=== PATIENT | male | born 1960 | race Caucasian/White ===

== ENCOUNTER 2016-08-02 16:18 | Emergency (ER) | payer OTHER ==
[~2016-08-02] VITALS: Ht 188 cm; Wt 70.3 kg
--- NOTE | 2016-08-02 16:51 | ED AMS/SEIZURE/WEAK/DIZZY ---
History of Present Illness General Chief Complaint: Chest Pain Stated Complaint: CP, DIZZY +N/V Source: patient Exam Limitations: no limitations Vital Signs & Intake/Output Vital Signs & Intake/Output Vital Signs Date Time Temp Pulse Resp B/P Pulse O2 O2 Flow FiO2 Ox Delivery Rate 08/02 1917 76 18 110/61 97 Room Air 08/02 1624 97.0 73 16 114/78 97 Room Air Allergies Coded Allergies: cephalexin (HIVES 08/02/16) Reconcile Medications Aspirin (Ecotrin*) 81 MG TABLET.DR 1 TAB PO DAILY HEART/BLOOD (Reported) Diazepam (Valium) 5 MG TABLET 1 TAB PO TID VERTIGO Hydrocodone/Acetaminophen (Hydrocodon-Acetaminophen 5-325) 5 MG-325 MG TABLET 1 TAB PO PRN PAIN (Reported) Meclizine HCl 25 MG TABLET 1 TAB PO TIDPRN VERTIGO Naproxen 500 MG TABLET 1 TAB PO BID PAIN/INFLAMMATION (Reported) Ondansetron (Zofran Odt) 4 MG TAB.RAPDIS 1 TAB SL TID NAUSEA Triage Note: PT TO TRIAGE FOR N/V X1-2 HOURS AND ASSOCIATED MIDSTERNAL CHEST PAIN, DIZZINESS, AND R SIDED FACIAL TINGLING. HISTORY OF SIMILAR EPISODE 3-4 YEARS AGO, DETERMINED TO BE VERTIGO. ARRIVES AAOX3 AND NEUROS INTACT ON ARRIVAL. DENIES ACTIVE CHEST PAIN AT THIS TIME. Triage Nurses Notes Reviewed? yes Onset: Abrupt Duration: hour(s): Injury Environment: home No Modifying Factors: none HPI: 56-year-old male comes into emergency room for further evaluation of dizziness and chest heaviness. Patient reports that when he got home today he was noticing that he was very lightheaded and dizzy and when he sat down and laid flat on his back he got extremely dizzy and began to be nauseous with some associated vomiting. Patient reports that he has had some vertigo symptoms in the past but nothing this severe. He reports that he also has some associated chest heaviness but not any actual chest pain or shortness of breath. Patient is a history of smoking but there is no history of hypertension cholesterol diabetes or prior coronary disease. Patient had a dislocated elbow on the left side a couple months ago that he currently is wearing a brace for. (UZIEL REHMAN,FANNY) Past History Travel History Traveled to [place] past 21 day No Medical History Any Pertinent Medical History? see below for history Neurological: vertigo EENT: NONE Cardiovascular: ENLARGED AORTIC ROOT Respiratory: NONE Gastrointestinal: NONE Hepatic: NONE Renal: NONE Musculoskeletal: DISLOCATED L ELBOW WITH LIGAMENT TEAR Psychiatric: NONE Endocrine: NONE Blood Disorders: NONE Cancer(s): NONE Tetanus Vaccine: 07/31/12 Surgical History Surgical History: non-contributory Psychosocial History What is your primary language Northern Irish Tobacco Use: Never used Family History Hx Contributory? No (FANNY ROBISON) Review of Systems Review of Systems Constitutional: Reports: no symptoms. EENTM: Reports: see HPI. Respiratory: Reports: no symptoms. Cardiovascular: Reports: see HPI. GI: Reports: no symptoms. Genitourinary: Reports: no symptoms. Musculoskeletal: Reports: no symptoms. Skin: Reports: no symptoms. Neurological/Psychological: Reports: no symptoms. Hematologic/Endocrine: Reports: no symptoms. Immunologic/Allergic: Reports: no symptoms. All Other Systems: Reviewed and Negative (FANNY ROBISON) Physical Exam Physical Exam General Appearance: well developed/nourished, alert, awake, moderate distress Head: atraumatic, normal appearance Eyes: Bilateral: normal appearance, PERRL, EOMI (horizontal nystagmus). Ears, Nose, Throat: normal pharynx, normal ENT inspection Neck: normal inspection, full range of motion Respiratory: normal breath sounds, no respiratory distress Cardiovascular: regular rate/rhythm Back: normal inspection Extremities: normal range of motion Neurologic/Psych: awake, alert, oriented x 3, normal gait, normal mood/affect Skin: intact, normal color Core Measures ACS in differential dx? Yes CVA/TIA Diagnosis: No Severe Sepsis Present: No Septic Shock Present: No (FANNY ROBISON) Progress Differential Diagnosis: arrythmia, alcohol intoxication, CVA/stroke, dehydration , drug intoxication, encephalitis, hypoglycemia, hypoxia, intracranial Hem., intracranial mass/tumor, labrynthitis, meningitis, migraine CHAVEZ, multiple sclerosis, postural hypotension, presyncope, post-traumatic vertigo, sepsis, subarachnoid Hem., UTI/pyelo, vertebrobasilar insuff Plan of Care: Orders Procedure Date/time Status TROPONIN LEVEL 08/02 1954 Complete EKG 08/02 1954 Active Telemetry/Cattle Tester 08/02 1648 Active TROPONIN LEVEL 08/02 1648 Complete COMPREHENSIVE METABOLIC PANEL 08/02 1649 Complete CBC WITHOUT DIFFERENTIAL 08/02 164 Complete EKG 08/02 1619 Active Laboratory Tests 08/02/162000: Troponin I < 0.01 08/02/161652: Anion Gap 10, Estimated GFR > 60, BUN/Creatinine Ratio 16.3, Glucose 111 H, Calcium 10.5 H, Total Bilirubin 0.8, AST 22, ALT 37, Alkaline Phosphatase 70, Troponin I < 0.01, Total Protein 7.2, Albumin 4.7, Globulin 2.5, Albumin/ Globulin Ratio 1.9, CBC w Diff NO MAN DIFF REQ, RBC 4.94, MCV 90.9, MCH 30.3, RDW 14.3, MPV 7.8, Gran % 61.9, Lymphocytes % 28.6, Monocytes % 7.7, Eosinophils % 1.5, Basophils % 0.3, Absolute Granulocytes 5.2, Absolute Lymphocytes 2.4, Absolute Monocytes 0.7 H, Absolute Eosinophils 0.1, Absolute Basophils 0, PUBS MCHC 33.3 Diagnostic Imaging: Viewed by Me: Radiology Read. Discussed w/RAD: Radiology Read. Radiology Impression: SERVICE DATE: 08/02/16 EXAM TYPE: RAD - XRY- PORTABLE CHEST XRAY EXAMINATION: CHEST 1 VIEW CLINICAL INFORMATION: Chest discomfort. Pain. Chest pressure. Heaviness. COMPARISON: None. TECHNIQUE: An AP view of the chest is provided. FINDINGS: The cardiac silhouette is not enlarged. The mediastinal and hilar contours are unremarkable. There are neither pleural effusions nor pneumothoraces. There are no consolidations. The osseous structures are unremarkable. IMPRESSION: No evidence for acute disease. Initial ED EKG: normal intervals, normal p-waves, normal sinus rhythm, rate (75) , left posterior fascicular block Prior EKG: unchanged Repeat EKG: unchanged (FANNY ROBISON) Departure Departure Disposition: HOME OR SELF CARE Condition: Stable Clinical Impression Primary Impression: Benign positional vertigo Referrals: VIVIEN CHICAS,[place] Harrington (PCP/Family) Additional Instructions: take valium, meclizine, and zofran odt as prescribed. Pick otc lipoflavanoid for vertigo. F/U with ENT dr. return if any concerns/worsening of symptoms. Please go over all results of today's visit with your primary care doctor. Contact your primary care doctor to let them know you were here in the emergency room. There may be nonspecific findings which may not be related to your visit today here in the emergency room but may require further evaluation and chronic monitoring by your primary care doctor. If you had a laceration today the chance of foreign body always remains. You should follow-up with your primary care doctor for recheck in 3-5 days for a wound check. If you had an x-ray done there is a chance that a fracture could have been missed on initial read and you should follow-up with your primary care doctor for repeat x-rays if symptoms persist. If your blood pressure was elevated here in the emergency room please have rechecked by her primary care doctor within the next 48 hours by your primary care doctor. If you were prescribed a narcotic here in the emergency room or any type of controlled substances you're not allowed to drive while taking this medication or operate any type of heavy machinery. Narcotics can make you feel lightheaded dizziness nausea and can cause constipation. You may need to pepper picker a stool softener. Thank you for choosing [facility] emergency room. Please return to the emergency room immediately if you have any other concerns worsening of symptoms. Departure Forms: Customer Survey General Discharge Information Prescriptions: Current Visit Scripts Diazepam (Valium) 1 TAB PO TID #20 TAB Meclizine HCl 1 TAB PO TIDPRN #30 TAB Ondansetron (Zofran Odt) 1 TAB SL TID #10 TAB Comments 08/02/2016 9:02:46 PM Upon reevaluating the patient multiple times his symptoms continue to improve. Discussed getting a CAT scan of the head with patient and family and they would rather hold off on this time due to improvement of symptoms. I feel that this is a very reasonable plan due to history of benign positional vertigo and the fact that the symptoms ago along with benign positional vertigo. Patient has not had any chest pain here in the emergency room. The chest pain that he experienced was only after vomiting and likely related from the vomiting. However second troponin since. Patient recommended to follow up with primary care doctor. Case discussed with Dr. azul. At this time I feel the patient is safe to be discharged. I have no suspicion for cerebellar infarct at this time or any type of atypical acute coronary syndrome presentation. Patient understands and agrees with plan of care. Patient will return immediately if any other concerns worsening symptoms. (FANNY ROBISON) PA/COMMISSIONS SPECIALIST Co-Sign Statement Statement: ED Attending supervision documentation- [] I saw and evaluated the patient. I have also reviewed all the pertinent lab results and diagnostic results. I agree with the findings and the plan of care as documented in the PA's/COMMISSIONS SPECIALIST's documentation. [X] I have reviewed the ED Record and agree with the PA's/COMMISSIONS SPECIALIST's documentation. [] Additions or exceptions (if any) to the PAs/COMMISSIONS SPECIALIST's note and plan are summarized below: [] (JIMMY CHICAS,LOREN)
[2016-08-02 17:00] LABS: ABSOLUTE BASOPHIL COUNT 0 /CUMM (0.0-0.2); ABSOLUTE EOSINOPHIL COUNT 0.1 /CUMM (0.0-0.7); ABSOLUTE GRANULOCYTE CT 5.2 /CUMM (1.4-6.5); ABSOLUTE LYMPH COUNT 2.4 /CUMM (1.2-3.4); ABSOLUTE MONOCYTE COUNT 0.7 /CUMM (0.10-0.60); BASOPHIL % 0.3 % (0.0-2.0); EOSINOPHIL % 1.5 % (0-5); GRANULOCYTE % 61.9 % (42.2-75.2); HEMATOCRIT 44.9 % (42-52); MEAN CORPUSCULAR HGB 30.3 PG (27.0-31.0); MEAN CORPUSCULAR HGB CONC 33.3 G/DL (33.0-37.0); MEAN CORPUSCULAR VOLUME 90.9 FL (80.0-94.0); MEAN PLATELET VOLUME 7.8 FL (7.4-10.4); PLATELET COUNT 260 /CUMM (130-400); RBC DISTRIBUTION WIDTH 14.3 % (11.5-14.5); RED BLOOD CELL CT 4.94 /CUMM (4.70-6.10); WHITE BLOOD CELL COUNT 8.5 /CUMM (4.8-10.8)
[2016-08-02] MEDS ORDERED: NAPROXEN500 M2 PO (17:28)
[2016-08-02] MEDS ORDERED: HYDROCODON-ACE1 EAC2 PO (17:28)
[2016-08-02] MEDS ORDERED: ASPIRIN EC81 M1 PO (17:29)
--- NOTE | 2016-08-02 17:42 | RADIOLOGY REPORT ---
EXAMINATION: CHEST 1 VIEW CLINICAL INFORMATION: Chest discomfort. Pain. Chest pressure. Heaviness. COMPARISON: None. TECHNIQUE: An AP view of the chest is provided. FINDINGS: The cardiac silhouette is not enlarged. The mediastinal and hilar contours are unremarkable. There are neither pleural effusions nor pneumothoraces. There are no consolidations. The osseous structures are unremarkable. IMPRESSION: No evidence for acute disease.
[2016-08-02 19:17] VITALS: BP 110/61
[2016-08-02] MEDS ORDERED: VALIUM5 M2 PO (20:46)
[2016-08-02] MEDS ORDERED: MECLIZINE HCL25 MG PO (20:46)
[2016-08-02] MEDS ORDERED: ZOFRAN ODT4 M1 SL (20:46)
== END 2016-08-02 20:47 ==
LOC: ERH 16:18
PROVIDERS: Physician Assistant Medical
DX: R07.89 Other chest pain (principal); H81.10 Benign paroxysmal vertigo, unspecified ear
CPT/HCPCS: 93005; 93010; 96374; 96375; J2405; J2930; J3360